=== PATIENT | female | born 1955 | race Caucasian/White ===

== ENCOUNTER → 2017-04-26 | Outpatient (CLI) | payer BC ==
[~2017-04-26] MED LIST: CALCIUM PHOSPHATE PO; CHOL500050 PO; MAGNESIUM PO; PANT20TA3 PO
== END | disposition home or self-care (01) ==
LOC: STAR 13:03
PROVIDERS: ATTEND Orthopaedic Surgery
DX: Z01.818 Encounter for other preprocedural examination (principal); M25.371 Other instability, right ankle
CPT/HCPCS: 93005

== ENCOUNTER 2017-04-30 12:30 | Observation (INO) | payer BC ==
[~2017-04-30] VITALS: Ht 170.2 cm; Wt 95.2 kg
[2017-04-30] MEDS ORDERED: LACTATED RINGERS 1,000 ML IV SCH (13:13)
[2017-04-30 13:38] VITALS: BP 145/73
[2017-04-30] MEDS ORDERED: FENTANYL PF 100 MCG/2ML ONE ×3 (15:49→18:58)
[2017-04-30] MEDS ORDERED: MIDAZOLAM 1 MG/ML, 2ML ONE (15:49)
[2017-04-30] MEDS ORDERED: PROPOFOL 10 MG/ML, 20ML ONE (16:33)
[2017-04-30] MEDS ORDERED: ONDANSETRON 2MG/ML, 2ML ONE (16:33)
[2017-04-30] MEDS ORDERED: ROCURONIUM 10 MG/ML ONE (16:33)
[2017-04-30] MEDS ORDERED: LABETALOL 5MG/ML 40ML VIAL ONE (16:33)
[2017-04-30] MEDS ORDERED: CEFAZOLIN 1,000 MG ONE (16:33)
[2017-04-30] MEDS ORDERED: ROPIvacaine/PF 0.2%, 100ML 400 ML in BAG 1 EACH INJ ONE (17:30)
[2017-04-30] MEDS ORDERED: hydrALAzine 20 MG/ML, 1ML IV PRN (17:30)
[2017-04-30] MEDS ORDERED: OXYcodone 5 MG/5 ML ORAL.SOL UDC PO PRN (17:30)
[2017-04-30] MEDS ORDERED: HYDROmorphone 1 MG/ML, 1ML IV PRN (17:30)
[2017-04-30] MEDS ORDERED: PROMETHAZINE 25 MG/ML, 1ML IV PRN (17:30)
[2017-04-30] MEDS ORDERED: ACETAMINOPHEN 325 MG TABLET PO PRN (17:30)
[2017-04-30] MEDS ORDERED: MEPERIDINE/PF 25MG/0.5ML IVPush PRN (17:30)
[2017-04-30] MEDS ORDERED: MIDAZOLAM 1 MG/ML, 2ML IV PRN (17:30)
[2017-04-30] MEDS ORDERED: ONDANSETRON 2MG/ML, 2ML IVPush PRN (17:30)
[2017-04-30] MEDS ORDERED: LABETALOL 5MG/ML, 20ML IV PRN (17:30)
[2017-04-30] MEDS ORDERED: OXYcodone 5 MG/5 ML ORAL.SOL UDC ONE (18:58)
[2017-04-30] MEDS ORDERED: ACETAMINOPHEN 650 MG/20.3 ML UDC ONE (18:58)
[2017-04-30] MEDS: FENTANYL PF 100 MCG/2ML IV PRN ×2 (19:00→19:28)
[2017-04-30] MEDS ORDERED: OXYcodone/APAP 7.5/325MG TABLET PO ONE (21:00)
[2017-04-30 23:18] VITALS: BP 134/75
[2017-05-01] MEDS ORDERED: hydrOXYzine 25 MG/ML IM PRN (00:30)
[2017-05-01] MEDS ORDERED: OXYcodone IR 5MG TABLET PO PRN (00:30)
[2017-05-01 03:23] VITALS: BP 113/67
[2017-05-01] MEDS ORDERED: OXYC-302 PO (03:48)
[2017-05-01 07:33] VITALS: BP 97/55
== END 2017-05-01 10:30 | disposition home or self-care (01) ==
LOC: OUT 12:30 → 4NOR 20:57 → OUT 23:36
PROVIDERS: ADMIT Orthopaedic Surgery; ATTEND Orthopaedic Surgery
DX: S92.001A Unspecified fracture of right calcaneus, initial encounter for closed fracture (principal); S86.391A Other injury of muscle(s) and tendon(s) of peroneal muscle group at lower leg level, right leg, initial encounter; M19.079 Primary osteoarthritis, unspecified ankle and foot; K21.9 Gastro-esophageal reflux disease without esophagitis; M25.831 Other specified joint disorders, right wrist; X58.XXXA Exposure to other specified factors, initial encounter; Y93.89 Activity, other specified; Y92.89 Other specified places as the place of occurrence of the external cause; Y99.8 Other external cause status
CPT/HCPCS: 27676; 27687; 28120; 28300; 28725; 73650; 76001; C1713; G0378; J0690; J2250; J2405; J2704; J2795; J3010; J7120